=== PATIENT | female | born 1935 | race Caucasian/White ===

== ENCOUNTER 2023-05-13 17:07 | Emergency (ER) | payer OTHER ==
[~2023-05-13] VITALS: Ht 154.9 cm; Wt 49.9 kg
[2023-05-13] MEDS ORDERED: VITA D3 PO (17:33)
[2023-05-13] MEDS ORDERED: [UNRECOGNIZED DRUG - OTHER] PO (17:33)
[2023-05-13] MEDS ORDERED: VITA1TAB56 PO (17:33)
[2023-05-13] MEDS ORDERED: GABA-532 PO (17:33)
[2023-05-13] MEDS ORDERED: [UNRECOGNIZED DRUG - OTHER] PO (17:33)
[2023-05-13] MEDS ORDERED: EYE PO (17:33)
[2023-05-13] MEDS ORDERED: AMLO-212 PO (17:33)
[2023-05-13] MEDS ORDERED: SIMV-46 PO (17:33)
[2023-05-13] MEDS ORDERED: MULT-1200 PO (17:33)
[2023-05-13] MEDS ORDERED: TURM500C9 PO (17:33)
[2023-05-13] MEDS ORDERED: [UNRECOGNIZED DRUG - OTHER] PO (17:33)
[2023-05-13] MEDS ORDERED: MIRT7.5T10 PO (17:33)
[2023-05-13] MEDS ORDERED: [UNRECOGNIZED DRUG - OTHER] PO (17:33)
[2023-05-13] MEDS ORDERED: FAMO40TA7 PO (17:33)
[2023-05-13] MEDS ORDERED: VITA C PO (17:33)
[2023-05-13] MEDS ORDERED: [UNRECOGNIZED DRUG - OTHER] PO (17:33)
[2023-05-13] MEDS ORDERED: LOSA100T31 PO (17:33)
[2023-05-13] MEDS ORDERED: [UNRECOGNIZED DRUG - OTHER] PO (17:33)
[2023-05-13] MEDS ORDERED: CLOP75TA15 PO (17:33)
[2023-05-13] MEDS ORDERED: METF-440 PO (17:33)
[2023-05-13] MEDS ORDERED: METO25TA20 PO (17:33)
[2023-05-13] MEDS ORDERED: OSTEOMATRIX PO (17:33)
[2023-05-13 17:48] LABS: CALCIUM, SERUM 9.8 mg/dL (8.5-10.1); CARBON DIOXIDE 23 mmol/L (21-32); CHLORIDE 106 mmol/L (98-107); CREATININE 1.3 mg/dL (0.6-1.3); GLUCOSE 265 mg/dL (74-106); POTASSIUM 4.2 mmol/L (3.5-5.1); SODIUM SERUM 140 mmol/L (136-145); UREA NITROGEN, BLOOD 25 mg/dL (7-18)
[2023-05-13 17:55] LABS: ALANINE AMINOTRANSFERASE 26 U/L (12-78); ALBUMIN 3.3 g/dL (3.4-5.0); ALKALINE PHOSPHATASE 58 U/L (46-116); ASPARTATE AMINOTRANSFERASE 29 U/L (15-37); BILIRUBIN,DIRECT 0.1 mg/dL (0.0-0.2); BILIRUBIN,TOTAL 0.3 mg/dL (0.2-1.0); TOTAL PROTEIN, SERUM 6.8 g/dL (6.4-8.2)
[2023-05-13 17:58] LABS: INR 1.03 (0.91-1.10); PARTIAL THROMBOPLASTIN TIME 28.3 SEC (24.3-34.3); PROTHROMBIN TIME 10.9 SECS (9.2-11.1)
[2023-05-13 18:45] LABS: BASOPHILS % (AUTO) 0.3 % (0.0-2.0); EOSINOPHILS # (AUTO) 0.4 K/uL (0.0-0.7); EOSINOPHILS % (AUTO) 6.1 % (0.0-6.0); HEMATOCRIT 39 % (33-45); HEMOGLOBIN 13.2 g/dL (11.5-14.8); LYMPHOCYTES # (AUTO) 3.1 K/uL (0.8-4.8); LYMPHOCYTES % (AUTO) 44.6 % (20.0-44.0); MEAN CORPUSCULAR HEMOGLOBIN 31 PG (26.0-33.0); MEAN CORPUSCULAR HGB CONC 34 g/dl (31.0-36.0); MEAN CORPUSCULAR VOLUME 91 fL (82-100); MONOCYTES # (AUTO) 0.6 K/uL (0.1-1.30); MONOCYTES % (AUTO) 8.4 % (2.0-12.0); NEUTROPHILS # (AUTO) 2.8 K/uL (1.8-8.9); NEUTROPHILS % (AUTO) 40.6 % (43.0-81.0); PLATELET COUNT (AUTO) 302 K/uL (150-450); RED BLOOD CELL COUNT(AUTO) 4.27 MIL/uL (4.0-5.2); RED CELL DISTRIBUTION WIDTH 13.6 % (11.5-15.0); WHITE BLOOD COUNT (AUTO) 6.9 K/uL (4.3-11.0)
[2023-05-13 19:03] LABS: APPEARANCE,URINE SLIGHTLY CLOUDY (CLEAR); BILIRUBIN,URINE NEGATIVE (NEGATIVE); BLOOD, URINE NEGATIVE Ery/uL (NEGATIVE); COLOR,URINE YELLOW (YELLOW); KETONES,URINE TRACE mg/dL (NEGATIVE); LEUKOCYTE ESTERASE ,URINE 1+ (NEGATIVE); NITRITE, URINE POSITIVE (NEGATIVE); PROTEIN,URINE TRACE mg/dl (NEGATIVE); UGLUCOSE TRACE mg/dL (NEGATIVE); UROBILINOGEN,URINE 0.2 EU/dL (0.2)
[2023-05-13 19:08] LABS: ADD URINE CULTURE YES; BACTERIA,URINE 3+ /HPF (None Seen); MUCUS,URINE Few /LPF (None Seen); RBC,URINE 0-2 /HPF (0-2)
[2023-05-13] MEDS ORDERED: ASPIRIN 325 MG TABLET ONE (19:59)
[2023-05-13] MEDS ORDERED: ASPIRIN 325 MG TABLET PO ONE (20:00)
[2023-05-13 22:39] VITALS: BP 135/77; TEMP 98; O2SAT 97
== END 2023-05-13 22:40 | disposition short-term general hospital (02) ==
LOC: ER 17:16
DX: G45.9 Transient cerebral ischemic attack, unspecified (principal); F03.90 Unspecified dementia, unspecified severity, without behavioral disturbance, psychotic disturbance, mood disturbance, and anxiety; I10 Essential (primary) hypertension; E11.9 Type 2 diabetes mellitus without complications; Z79.84 Long term (current) use of oral hypoglycemic drugs; Z79.899 Other long term (current) drug therapy; Z20.822 Contact with and (suspected) exposure to COVID-19
CPT/HCPCS: 99285; 70450; 87426; 93005; 85025; 80048; 87086; 80076; 81001; 36415; 84484; 85730; C9803